=== PATIENT | female | born 1995 | race American Indian/Alaskan Native ===

== ENCOUNTER 2021-04-01 11:54 | Emergency (ER) | payer OTHER ==
[2021-04-01] MEDS ORDERED: dexAMETHasone 20 MG/5 ML VIAL IM ONE (12:38)
[2021-04-01 12:54] VITALS: BP 155/88
--- NOTE | 2021-04-01 12:57 | Emergency Department Report ---
ED ENT HPI - General Chief complaint: Sore Throat Stated complaint: TONSILS SWOLLEN Time Seen by Provider: 04/01/21 12:23 Source: patient Mode of arrival: Ambulatory Limitations: No Limitations - History of Present Illness Initial comments: Patient is a 26-year-old female presents emergency room complaints of left-sided tonsillar swelling that began 3 days ago. She has associated sore throat and discomfort with swallowing. She is able to tolerate p.o. intake and her secretions. She denies any fever, nausea, vomiting, difficulty breathing. She denies any known sick contacts or recent travel. Past medical history of gastric sleeve. 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 Last menstrual cycle end of February. - Related Data Previous Rx's Medication Instructions Recorded Last Taken Type Amoxicillin/Potassium Clav 1 each PO BID 10 Days #20 tablet 04/01/21 Unknown Rx [Augmentin 875-125 Tablet] Prednisone [predniSONE 10 mg 10 mg PO .TAPER #1 tab.ds.pk 04/01/21 Unknown Rx (6-Day Pack, 21 Tabs)] Allergies Allergy/AdvReac Type Severity Reaction Status Date / Time sesame seed Allergy Swelling Verified 04/01/21 12:18 ED Dental HPI - General Chief complaint: Sore Throat Stated complaint: TONSILS SWOLLEN Time Seen by Provider: 04/01/21 12:23 Source: patient Mode of arrival: Ambulatory Limitations: No Limitations - Related Data Previous Rx's Medication Instructions Recorded Last Taken Type Amoxicillin/Potassium Clav 1 each PO BID 10 Days #20 tablet 04/01/21 Unknown Rx [Augmentin 875-125 Tablet] Prednisone [predniSONE 10 mg 10 mg PO .TAPER #1 tab.ds.pk 04/01/21 Unknown Rx (6-Day Pack, 21 Tabs)] Allergies Allergy/AdvReac Type Severity Reaction Status Date / Time sesame seed Allergy Swelling Verified 04/01/21 12:18 ED Review of Systems ROS: Stated complaint: TONSILS SWOLLEN Other details as noted in HPI Comment: All other systems reviewed and negative ED Past Medical Hx - Past Medical History Previous Medical History?: No - Surgical History Past Surgical History?: Yes Additional Surgical History: Gastric sleeve, - Medications Home Medications: Home Medications Medication Instructions Recorded Confirmed Last Taken Type Amoxicillin/Potassium Clav 1 each PO BID 10 Days #20 tablet 04/01/21 Unknown Rx [Augmentin 875-125 Tablet] Prednisone [predniSONE 10 mg 10 mg PO .TAPER #1 tab.ds.pk 04/01/21 Unknown Rx (6-Day Pack, 21 Tabs)] ED Physical Exam - General Limitations: No Limitations General appearance: alert, in no apparent distress - Head Head exam: Present: atraumatic, normocephalic - Eye Eye exam: Present: normal appearance - ENT ENT exam: Present: mucous membranes moist, other (left sided tonsillar hypertrophy with exudates, there are exudates to the right side of the posterior oropharynx with only mild tonsillar hypertropy, uvula is midline, no uvular edema or deviation, no trismus, no tongue elevation, no muffled voice) - Neurological Exam Neurological exam: Present: alert, oriented X3 - Psychiatric Psychiatric exam: Present: normal affect, normal mood - Skin Skin exam: Present: warm, dry, intact ED Course Vital Signs 04/01/21 12:14 Temperature 99.3 F Pulse Rate 87 Respiratory 16 Rate Blood Pressure 155/88 O2 Sat by Pulse 100 Oximetry ED Medical Decision Making - Medical Decision Making Patient is a 26-year-old female presents emergency room complaints of left-sided tonsillar swelling that began 3 days ago. She has associated sore throat and discomfort with swallowing. She is able to tolerate p.o. intake and her secretions. She denies any fever, nausea, vomiting, difficulty breathing. She denies any known sick contacts or recent travel. Past medical history of gastric sleeve. 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 Last menstrual cycle end of February. Vitals are stable. On exam:left sided tonsillar hypertrophy with exudates, there are exudates to the right side of the posterior oropharynx with only mild tonsillar hypertropy, uvula is midline, no uvular edema or deviation, no trismus, no tongue elevation, no muffled voice. Rapid strep is positive. Examination appears consistent with tonsillitis versus possible mild, early peritonsillar abscess. There is no uvular deviation, she is tolerating p.o. intake without difficulty, airway is intact. Patient given dexamethasone IM while in the emergency department. Patient given prescription for medication. Discussed the importance of ENT follow-up. Discussed very strict return precautions with patient. Advised patient Please take medication as prescribed. May take Tylenol as needed for pain. Gargle with warm salt water. Do not drink after others or allow others to drink after you. Throw away your toothbrush, and get a new toothbrush. Follow-up with a ear nose and throat doctor. Return to emergency room immediately for any new or worsening symptoms including but not limited to worsening swelling, worsening pain, unable to swallow, difficulty breathing, etc. Critical care attestation.: If time is entered above; I have spent that time in minutes in the direct care of this critically ill patient, excluding procedure time. ED Disposition Clinical Impression: Tonsillitis, Tonsillar hypertrophy, unilateral Disposition: 01 HOME / SELF CARE / HOMELESS Is pt being admited?: No Does the pt Need Aspirin: No Condition: Stable Instructions: Tonsillitis, [id number] Additional Instructions: Please take medication as prescribed. May take Tylenol as needed for pain. Gargle with warm salt water. Do not drink after others or allow others to drink after you. Throw away your toothbrush, and get a new toothbrush. Follow-up with a ear nose and throat doctor. Return to emergency room immediately for any new or worsening symptoms including but not limited to worsening swelling, worsening pain, unable to swallow, difficulty breathing, etc. Prescriptions: Amoxicillin/Potassium Clav [Augmentin 875-125 Tablet] 1 each PO BID 10 Days #20 tablet Prednisone [predniSONE 10 mg (6-Day Pack, 21 Tabs)] 10 mg PO .TAPER #1 tab.ds.pk Referrals: VALDO LUX MD [Staff Physician] - 3-5 Days LINDEN CAMARA MD [Referring] - 3-5 Days Forms: Work/School Release Form(ED) Time of Disposition: 12:56 Print Language: [place]
== END 2021-04-01 14:02 | disposition home or self-care (01) ==
LOC: ED 11:54
DX: J03.90 Acute tonsillitis, unspecified (principal)
CPT/HCPCS: 87430; 96372; 99283; J1100